=== PATIENT | male | born 1955 | race Caucasian/White ===

== ENCOUNTER 2023-10-24 13:09 | Emergency (ER) | payer MEDICARE, OTHER ==
[~2023-10-24] VITALS: Ht 167.6 cm; Wt 68.9 kg
[2023-10-24 14:41] LABS: BASOPHILS % (AUTO) 0.1 % (0.0-2.0); EOSINOPHILS % (AUTO) 0.1 % (0.0-6.0); HEMATOCRIT 30 % (39-51); HEMOGLOBIN 9.7 g/dL (13.5-17.5); LYMPHOCYTES # (AUTO) 0.4 K/uL (0.8-4.8); LYMPHOCYTES % (AUTO) 14.1 % (20.0-44.0); MEAN CORPUSCULAR HEMOGLOBIN 30 PG (26.0-33.0); MEAN CORPUSCULAR HGB CONC 33 g/dl (31.0-36.0); MEAN CORPUSCULAR VOLUME 92 fL (80-96); MONOCYTES % (AUTO) 0.8 % (2.0-12.0); NEUTROPHILS # (AUTO) 2.6 K/uL (1.8-8.9); NEUTROPHILS % (AUTO) 84.9 % (43.0-81.0); PLATELET COUNT (AUTO) 258 K/uL (150-450); RED BLOOD CELL COUNT(AUTO) 3.22 MIL/uL (4.5-6.0); RED CELL DISTRIBUTION WIDTH 16.4 % (11.5-15.0); WHITE BLOOD COUNT (AUTO) 3.1 K/uL (4.3-11.0)
[2023-10-24] MEDS ORDERED: IOHEXOL-300 100 ML VIAL IV ONE (14:46)
[2023-10-24] MEDS ORDERED: IV NS 0.9% 250 ML IV ONE (14:46)
[2023-10-24 14:57] LABS: INR 1.09 (0.91-1.10); PARTIAL THROMBOPLASTIN TIME 37.1 SEC (24.3-34.3); PROTHROMBIN TIME 11.5 SECS (9.2-11.1)
[2023-10-24 15:02] LABS: CALCIUM, SERUM 7.8 mg/dL (8.5-10.1); CARBON DIOXIDE 26 mmol/L (21-32); CHLORIDE 96 mmol/L (98-107); CREATININE 0.8 mg/dL (0.6-1.3); GLUCOSE 94 mg/dL (74-106); SODIUM SERUM 129 mmol/L (136-145); UREA NITROGEN, BLOOD 16 mg/dL (7-18)
[2023-10-24 15:09] LABS: LACTIC ACID 2.4 mmol/L (0.4-2.0)
[2023-10-24 15:13] LABS: ALANINE AMINOTRANSFERASE 102 U/L (12-78); ALKALINE PHOSPHATASE 146 U/L (46-116); ASPARTATE AMINOTRANSFERASE 39 U/L (15-37); BILIRUBIN,DIRECT 0.4 mg/dL (0.0-0.2); TOTAL PROTEIN, SERUM 6.1 g/dL (6.4-8.2)
[2023-10-24] MEDS ORDERED: ROSU20TA2 PO (15:31)
[2023-10-24] MEDS ORDERED: LACT-54 PO (15:31)
[2023-10-24] MEDS ORDERED: TRAZ-257 PO (15:31)
[2023-10-24] MEDS ORDERED: MORP10SO PO (15:31)
[2023-10-24] MEDS ORDERED: ONDA-97 PO (15:31)
[2023-10-24] MEDS ORDERED: FAMO20TA8 PO (15:31)
[2023-10-24] MEDS ORDERED: HYDR-500 PO (15:31)
[2023-10-24] MEDS ORDERED: SERT50TA PO (15:31)
[2023-10-24] MEDS ORDERED: LEVO100T9 PO (15:31)
[2023-10-24] MEDS: IV LR 1000 ML 1,000 ML BAG IV ONE (15:50)
[2023-10-24] MEDS: PIPERACILLIN /TAZOBACTAM 3.375 G in IV D5W 50 ML IV ONE (15:55)
[2023-10-24] MEDS: VANCOMYCIN 1 GM in IV D5W 250 ML IV ONE (16:10)
[2023-10-24] MEDS ORDERED: MORPHINE SULFATE INJ 4 MG/ML DISP.SYRIN ONE (18:55)
[2023-10-24] MEDS: MORPHINE SULFATE INJ 2 MG/ML DISP.SYRIN IV ONE (18:55)
[2023-10-25] MEDS ORDERED: MORPHINE SULFATE INJ 2 MG/ML DISP.SYRIN ONE ×3 (04:04→18:16)
[2023-10-25] MEDS: MORPHINE SULFATE INJ 2 MG/ML DISP.SYRIN IV ONE (04:11)
[2023-10-25] MEDS: MORPHINE SULFATE INJ 2 MG/ML DISP.SYRIN IV PRN (10:45)
[2023-10-25] MEDS ORDERED: LORAZEPAM 0.5 MG TABLET PO ONE (15:30)
[2023-10-25] MEDS: MIDAZOLAM HCL 2 MG/2ML VIAL IV ONE (15:30)
[2023-10-25] MEDS ORDERED: MIDAZOLAM HCL 2 MG/2ML VIAL ONE (15:32)
[2023-10-25 23:47] VITALS: BP 127/71; TEMP 98.2; O2SAT 98
== END 2023-10-25 23:48 ==
LOC: ER 13:12
DX: K12.2 Cellulitis and abscess of mouth (principal); L02.01 Cutaneous abscess of face; M27.2 Inflammatory conditions of jaws; E78.00 Pure hypercholesterolemia, unspecified; F41.9 Anxiety disorder, unspecified; Z88.8 Allergy status to other drugs, medicaments and biological substances; Z79.899 Other long term (current) drug therapy; Z20.822 Contact with and (suspected) exposure to COVID-19
CPT/HCPCS: 99291; 96365; 70491; 71045; 96375 ×2; 87426; 96368; 93005; 84145; 85025; 80048; 87040 ×2; 83605 ×2; 80076; 36415; 85730; 96376; J2270 ×4; J3370; J2543; J7060; J7120; J7050; A4624; Q9967; J2250; A4223